=== PATIENT | female | born 1995 | race Caucasian/White ===

== ENCOUNTER 2017-11-02 12:54 | Emergency (ER) | payer BC ==
--- NOTE | 2017-11-02 13:02 | EDPHY ---
H & P Time Seen by Provider: 11/02/17 13:00 HPI/ROS: CHIEF COMPLAINT: Chest pain HISTORY OF PRESENT ILLNESS: The patient presents the ED for evaluation of a 1 month history of intermittent chest pain. The patient reports that she is experiencing near daily paroxysms of a sharp pain lasting approximately 7-10 seconds at a time. It is predominantly left-sided and substernal in nature. The patient denies fever, cough or congestion. She denies asymmetric calf pain or swelling. The patient reports no change in her symptoms with exercise. She does report increasing stress secondary to applying to a graduate program and an extensive work schedule. The patient does not smoke. She stop using control pills approximately 3-4 months ago. REVIEW OF SYSTEMS: A comprehensive 10 point review of systems is otherwise negative aside from elements mentioned in the history of present illness. Source: Patient Exam Limitations: No limitations - Medical/Surgical History PMH: Past medical history: Noncontributory - Family History Significant Family History: No pertinent family hx - Social History Smoking Status: Never smoked - Physical Exam Exam: General Appearance: Alert, no distress Eyes: Pupils equal and round no pallor or injection ENT, Mouth: Mucous membranes moist Respiratory: Minimal tenderness to palpation along the left costochondral border Cardiovascular: Regular rate and rhythm Gastrointestinal: Abdomen is soft and nontender, no masses, bowel sounds normal Neurological: 5/5 strength all 4 extremities Skin: Warm and dry, no rashes Musculoskeletal: Neck is supple nontender Extremities: symmetrical, full range of motion, no asymmetric calf tenderness appreciated Constitutional: Initial Vital Signs Temperature (C) 36.7 C 11/02/17 13:51 Heart Rate 80 11/02/17 13:51 Respiratory Rate 13 11/02/17 13:51 Blood Pressure 123/84 H 11/02/17 13:51 O2 Sat (%) 98 11/02/17 13:51 O2 Delivery Mode Room Air Allergies/Adverse Reactions: Penicillins Allergy (Verified 11/02/17 13:55) Sulfa (Sulfonamide Antibiotics) Allergy (Verified 11/02/17 13:55) Medical Decision Making - Diagnostics EKG Interpretation: EKG: Complete interpretation has been separately recorded in the [facility] archive. Summary impression: Sinus rhythm, no ischemic changes noted Imaging Results: Imaging Impressions Chest X-Ray 11/02/17 13:12 Impression: Normal. ED Course/Re-evaluation: The patient presents the emergency department with complaints of intermittent chest pain for the past month. The patient has no risk factors for coronary artery disease. She is noted to be hemodynamically stable. The patient's EKG, troponin and D-dimer negative. She is low risk by Wells criteria and I feel pulmonary embolism has been adequately excluded. The patient was kept on a ironing pleater without evidence of ectopy. At this point time I do feel the patient can follow up with Cardiology for consideration of a Holter monitor as she may be having symptomatic PVCs. The patient will be discharged home with customary aftercare instructions and return precautions. Differential Diagnosis: Differential diagnosis considered includes acute coronary syndrome, pericarditis , myocarditis, aortic dissection, pneumothorax, pulmonary embolism - Data Points Laboratory Results: Laboratory Results 11/02/17 13:05 11/02/17 13:05 11/02/17 11/02/17 11/02/17 13:05 13:05 13:05 WBC RBC Hgb Hct MCV MCH MCHC RDW Plt Count MPV Neut % (Auto) Lymph % (Auto) Banks % (Auto) Eos % (Auto) Baso % (Auto) Nucleat RBC Rel Count Absolute Neuts (auto) Absolute Lymphs (auto) Absolute Monos (auto) Absolute Eos (auto) Absolute Basos (auto) Absolute Nucleated RBC Immature Gran % Immature Gran # D-Dimer < 0.27 ug/mLFEU ug/mLFEU (0.00-0.50) Sodium 141 mEq/L mEq/L (135-145) Potassium 3.9 mEq/L mEq/L (3.5-5.2) Chloride 100 mEq/L mEq/L (97-110) Carbon Dioxide 27 mEq/l mEq/l (22-31) Anion Gap 14 mEq/L mEq/L (8-16) BUN 14 mg/dL mg/dL (7-23) Creatinine 0.9 mg/dL mg/dL (0.6-1.0) Estimated GFR > 60 Glucose 89 mg/dL mg/dL (70-100) Calcium 10.0 mg/dL mg/dL (8.5-10.4) Troponin I < 0.012 ng/mL ng/mL (0.000-0.034) Beta HCG, Qual NEGATIVE 11/02/17 13:05 WBC 8.55 10^3/uL 10^3/uL (3.80-9.50) RBC 4.61 10^6/uL 10^6/uL (4.18-5.33) Hgb 13.7 g/dL g/dL (12.6-16.3) Hct 41.0 % % (38.0-47.0) MCV 88.9 fL fL (81.5-99.8) MCH 29.7 pg pg (27.9-34.1) MCHC 33.4 g/dL g/dL (32.4-36.7) RDW 12.9 % % (11.5-15.2) Plt Count 246 10^3/uL 10^3/uL (150-400) MPV 10.3 fL fL (8.7-11.7) Neut % (Auto) 45.9 % % (39.3-74.2) Lymph % (Auto) 45.6 % H % (15.0-45.0) Banks % (Auto) 6.2 % % (4.5-13.0) Eos % (Auto) 1.8 % % (0.6-7.6) Baso % (Auto) 0.4 % % (0.3-1.7) Nucleat RBC Rel Count 0.0 % % (0.0-0.2) Absolute Neuts (auto) 3.93 10^3/uL 10^3/uL (1.70-6.50) Absolute Lymphs (auto) 3.90 10^3/uL H 10^3/uL (1.00-3.00) Absolute Monos (auto) 0.53 10^3/uL 10^3/uL (0.30-0.80) Absolute Eos (auto) 0.15 10^3/uL 10^3/uL (0.03-0.40) Absolute Basos (auto) 0.03 10^3/uL 10^3/uL (0.02-0.10) Absolute Nucleated RBC 0.00 10^3/uL 10^3/uL (0-0.01) Immature Gran % 0.1 % % (0.0-1.1) Immature Gran # 0.01 10^3/uL 10^3/uL (0.00-0.10) D-Dimer Sodium Potassium Chloride Carbon Dioxide Anion Gap BUN Creatinine Estimated GFR Glucose Calcium Troponin I Beta HCG, Qual Departure - Departure Disposition: Home, Routine, Self-Care Clinical Impression: Chest pain Qualifiers: Chest pain type: other chest pain Qualified Code(s): R07.89 - Other chest pain ; R07.8 - Other chest pain Condition: Good Instructions: Chest Pain (ED) Additional Instructions: 1. The testing done in the emergency department demonstrates no significant abnormality. 2. Please return to the ED for markedly worsening symptoms or other concerns . 3. I would recommend following up with Cardiology for consideration of a Holter monitor. Referrals: Sierra Toney MD [Medical Doctor] - As per Instructions
--- NOTE | 2017-11-02 13:08 | CPEKG ---
Heart Rate: 73 RR Interval: 822 P-R Interval: 188 QRSD Interval: 94 QT Interval: 396 QTC Interval: 437 P [place]: 59 QRS [place]: 56 T Wave [place]: 51 EKG Severity - NORMAL ECG - EKG Impression: SINUS RHYTHM Electronically Signed By: Masoud Jansen 02-Nov-2017 16:25:48
[2017-11-02 13:17] LABS: PLATELET COUNT 246 10^3/uL (150-400)
[2017-11-02 14:22] VITALS: BP 116/78
== END 2017-11-02 14:19 | disposition home or self-care (01) ==
DX: R07.89 Other chest pain (principal)